=== PATIENT | male | born 1970 | race Caucasian/White ===

== ENCOUNTER 2017-04-02 22:14 | Inpatient (IN) | payer OTHER ==
[~2017-04-02] VITALS: Ht 185.4 cm; Wt 77.3 kg
[2017-04-02 23:09] LABS: HEMATOCRIT 33.6 % (38.0-50.0); HEMOGLOBIN 11.6 G/DL (12.5-16.6); MCHC 34.5 G/DL (30.0-36.0); MCV 78.3 FL (86-99); PLATELET COUNT 384 K/uL (156-360); RBC DIS.WIDTH-CV 11.8 % (11.8-14.6); RBC DIS.WIDTH-SD 33.5 % (39-53); RED BLOOD COUNT 4.29 M/uL (4.00-5.50); WHITE BLOOD COUNT 16.4 K/uL (4.1-10.2)
[2017-04-02 23:16] LABS: CARBON DIOXIDE (BICARBONATE) 25.9 MEQ/L (20-31)
[2017-04-02 23:22] LABS: CHLORIDE 96 mEq/L (99-109); POTASSIUM 4.3 mEq/L (3.7-5.4); SODIUM 131 mEq/L (136-147)
[2017-04-02 23:23] LABS: GLUCOSE 210 mg/dL (70-99)
[2017-04-02 23:27] LABS: CREATININE 1.4 mg/dL (0.6-1.3); GFR ESTIMATE (CALCULATED) 57 mL/min/ (58.99-99999)
[2017-04-02 23:28] LABS: UREA NITROGEN (BUN) 20 mg/dL (9-23)
[2017-04-03 13:41] VITALS: BP 121/85
[2017-04-03 14:00] VITALS: BP 129/82
[2017-04-03 16:00] VITALS: BP 137/80
[2017-04-03 17:13] LABS: APPEARANCE CLEAR ((CLEAR)); BILIRUBIN NEGATIVE; BLOOD NEGATIVE; COLOR YELLOW ((YELLOW)); GLUCOSE (STRIP) 150; KETONES NEGATIVE; LEUKOCYTES NEGATIVE; NITRITE NEGATIVE; PROTEIN (STRIP) 30; SPECIFIC GRAVITY 1.027 (1.000-1.030); UCUL ADDED? NO
[2017-04-03 17:23] VITALS: BP 128/66
[2017-04-03 20:00] VITALS: BP 131/69
[2017-04-03 23:40] VITALS: BP 132/74
[2017-04-04 04:08] VITALS: BP 104/60
[2017-04-04 06:04] LABS: BASOPHIL (%) 0.4 % (0-1); BASOPHIL COUNT 0.1 K/uL (0-0.1); EOSINOPHIL (%) 1.6 % (0-5); EOSINOPHIL COUNT 0.2 K/uL (0-0.3); HEMATOCRIT 30.6 % (38.0-50.0); HEMOGLOBIN 10.3 G/DL (12.5-16.6); IMMATURE GRANULOCYTE (%) 0.4 % (0.0-0.7); LYMPHOCYTE (%) 15.3 % (15-42); MCH 27.3 PG (29.0-34.0); MCHC 33.7 G/DL (30.0-36.0); MCV 81.2 FL (86-99); MONOCYTE (%) 10.5 % (3-12); MONOCYTE COUNT 1.3 K/uL (0-0.8); NEUTROPHIL (%) 71.8 % (45-76); NEUTROPHIL COUNT 9.2 K/uL (1.8-6.4); PLATELET COUNT 312 K/uL (156-360); RBC DIS.WIDTH-SD 35.1 % (39-53); RED BLOOD COUNT 3.77 M/uL (4.00-5.50); WHITE BLOOD COUNT 12.8 K/uL (4.1-10.2)
[2017-04-04 06:21] LABS: CHLORIDE 98 MEQ/L (99-109); CREATININE 0.8 MG/DL (0.6-1.3); GFR ESTIMATE (CALCULATED) > 59 mL/min/ (58.99-99999); GLUCOSE 263 mg/dL (70-99); POTASSIUM 4.4 MEQ/L (3.7-5.4); SODIUM 134 MEQ/L (136-147); UREA NITROGEN (BUN) 11 mg/dL (9-23)
[2017-04-04 09:18] VITALS: BP 127/63
[2017-04-04 11:22] VITALS: BP 118/66
[2017-04-04 15:03] VITALS: BP 147/63
[2017-04-04 19:55] VITALS: BP 110/63
[2017-04-04 23:53] VITALS: BP 116/66
[2017-04-05 03:50] VITALS: BP 102/55
[2017-04-05 08:30] VITALS: BP 125/66
[2017-04-05 11:44] VITALS: BP 124/65
[2017-04-05 16:24] VITALS: BP 138/68
[2017-04-05 20:22] VITALS: BP 118/71
[2017-04-05 23:29] VITALS: BP 137/82
[2017-04-06 04:11] VITALS: BP 145/73
[2017-04-06 07:06] LABS: CHLORIDE 99 MEQ/L (99-109); CREATININE 0.9 MG/DL (0.6-1.3); GFR ESTIMATE (CALCULATED) > 59 mL/min/ (58.99-99999); GLUCOSE 136 mg/dL (70-99); POTASSIUM 4.6 MEQ/L (3.7-5.4); SODIUM 136 MEQ/L (136-147); UREA NITROGEN (BUN) 11 mg/dL (9-23)
[2017-04-06 08:41] VITALS: BP 123/68
[2017-04-06 11:56] VITALS: BP 105/64
[2017-04-06 16:31] VITALS: BP 126/77
[2017-04-06 20:43] VITALS: BP 112/57
[2017-04-07 00:05] VITALS: BP 116/62
[2017-04-07 03:54] VITALS: BP 107/61
[2017-04-07 08:34] VITALS: BP 114/67
[2017-04-07 11:44] VITALS: BP 135/67
[2017-04-07 16:50] VITALS: BP 107/66
[2017-04-07 20:49] LABS: HEMOGLOBIN A1c (GLYCOHEMOGLOB) 8.3 % HGB (Below 5.7)
[2017-04-08 00:18] VITALS: BP 117/74
[2017-04-08 07:35] VITALS: BP 99/57
[2017-04-08 10:19] LABS: BASOPHIL (%) 0.6 % (0-1); BASOPHIL COUNT 0.1 K/uL (0-0.1); EOSINOPHIL (%) 3.5 % (0-5); EOSINOPHIL COUNT 0.4 K/uL (0-0.3); HEMOGLOBIN 10.7 G/DL (12.5-16.6); IMMATURE GRANULOCYTE (%) 0.6 % (0.0-0.7); LYMPHOCYTE (%) 16.1 % (15-42); LYMPHOCYTE COUNT 1.7 K/uL (1.0-2.8); MCH 26.7 PG (29.0-34.0); MCHC 32.4 G/DL (30.0-36.0); MCV 82.3 FL (86-99); MONOCYTE (%) 9.5 % (3-12); NEUTROPHIL (%) 69.7 % (45-76); NEUTROPHIL COUNT 7.5 K/uL (1.8-6.4); RBC DIS.WIDTH-CV 11.8 % (11.8-14.6); RBC DIS.WIDTH-SD 35.7 % (39-53); RED BLOOD COUNT 4.01 M/uL (4.00-5.50); WHITE BLOOD COUNT 10.8 K/uL (4.1-10.2)
[2017-04-08 10:40] LABS: CHLORIDE 100 MEQ/L (99-109); CREATININE 0.9 MG/DL (0.6-1.3); GFR ESTIMATE (CALCULATED) > 59 mL/min/ (58.99-99999); GLUCOSE 138 mg/dL (70-99); POTASSIUM 4.5 MEQ/L (3.7-5.4); SODIUM 138 MEQ/L (136-147); UREA NITROGEN (BUN) 13 mg/dL (9-23)
[2017-04-08 10:46] LABS: PLATELET COUNT 438 K/uL (156-360)
[2017-04-08 15:53] VITALS: BP 118/62
[2017-04-08 23:50] VITALS: BP 107/56
[2017-04-09 07:35] VITALS: BP 123/73
[2017-04-09 16:46] VITALS: BP 109/58
[2017-04-09 20:20] VITALS: BP 123/77
[2017-04-10 08:00] VITALS: BP 132/68
[2017-04-10 12:26] LABS: HEMATOCRIT 33.3 % (38.0-50.0); HEMOGLOBIN 10.8 G/DL (12.5-16.6); MCH 26.2 PG (29.0-34.0); MCHC 32.4 G/DL (30.0-36.0); MCV 80.8 FL (86-99); PLATELET COUNT 504 K/uL (156-360); RBC DIS.WIDTH-CV 11.6 % (11.8-14.6); RBC DIS.WIDTH-SD 34.2 % (39-53); RED BLOOD COUNT 4.12 M/uL (4.00-5.50); WHITE BLOOD COUNT 11.3 K/uL (4.1-10.2)
[2017-04-10 12:37] LABS: CHLORIDE 100 MEQ/L (99-109); CREATININE 0.7 MG/DL (0.6-1.3); GFR ESTIMATE (CALCULATED) > 59 mL/min/ (58.99-99999); GLUCOSE 187 mg/dL (70-99); POTASSIUM 5.1 MEQ/L (3.7-5.4); SODIUM 136 MEQ/L (136-147); UREA NITROGEN (BUN) 14 mg/dL (9-23)
[2017-04-10 23:43] VITALS: BP 123/65
[2017-04-11 07:57] VITALS: BP 122/71
[2017-04-11] MEDS ORDERED: OXYCODONE HCL5 MG PO (13:24)
[2017-04-11] MEDS ORDERED: ACIDOPHILUS LA1 EACH PO (13:24)
[2017-04-11] MEDS ORDERED: VITAMIN D-32000 UNI2 PO (13:24)
[2017-04-11] MEDS ORDERED: METRONIDAZOLE500 MG PO (13:24)
[2017-04-11] MEDS ORDERED: GLIPIZIDE5 MG PO (13:24)
[2017-04-11] MEDS ORDERED: LEVEMIR100 UNIT/2 SC (13:24)
[2017-04-11] MEDS ORDERED: ROCEPHIN1000 MG IM (13:24)
== END 2017-04-11 17:00 | disposition home or self-care (01) | DRG 854 ==
LOC: EME 22:14 → EDOF 04-03 02:40 → 4SOUTH 04-03 02:40 → ENRESERV 04-03 02:42 → CANRESERV 04-03 02:42 → ENRESERV 04-03 05:39 → 4SOUTH 04-03 17:02
PROVIDERS: Emergency Medicine; Hospitalist; Internal Medicine
PROC: 0Y6W0Z0 Detachment at Left 4th Toe, Complete, Open Approach (ICD-10-PCS; principal; 2017-04-03)
PROC: 0QBP0ZZ Excision of Left Metatarsal, Open Approach (ICD-10-PCS; 2017-04-07)
PROC: 0QTR0ZZ Resection of Left Toe Phalanx, Open Approach (ICD-10-PCS; 2017-04-09)
DX: A41.9 Sepsis, unspecified organism (principal); E11.69 Type 2 diabetes mellitus with other specified complication; L03.032 Cellulitis of left toe; E11.52 Type 2 diabetes mellitus with diabetic peripheral angiopathy with gangrene; M86.9 Osteomyelitis, unspecified; L02.612 Cutaneous abscess of left foot; L03.116 Cellulitis of left lower limb; E11.42 Type 2 diabetes mellitus with diabetic polyneuropathy; E11.65 Type 2 diabetes mellitus with hyperglycemia; E11.628 Type 2 diabetes mellitus with other skin complications; D50.9 Iron deficiency anemia, unspecified; T63.301A Toxic effect of unspecified spider venom, accidental (unintentional), initial encounter; Z91.19 Patient's noncompliance with other medical treatment and regimen; Z79.2 Long term (current) use of antibiotics; Z83.3 Family history of diabetes mellitus
CPT/HCPCS: 71045; 73630; 73720; 80048; 81003; 82010; 82306; 82803; 82948; 83036; 83605; 85025; 85027; 85651; 86140; 87040; 87070; 87075; 87076; 87077; 87086; 87147; 87186; 87205; 88305; 88311; 93970; 99281; 99285; J0690; J0696; J1650; J1815; J1885; J2250; J2270; J2405; J2543; J3010; J7030; J7050; J7120; S0020